=== PATIENT | male | born 1970 | race Two or more races ===

== ENCOUNTER 2017-05-07 10:51 | Emergency (ER) | payer MEDICAID ==
[2017-05-07 11:08] VITALS: BP 128/85
== END 2017-05-07 13:26 | disposition home or self-care (01) ==
LOC: ED 10:51
DX: B34.9 Viral infection, unspecified (principal); Z88.6 Allergy status to analgesic agent
CPT/HCPCS: J1100

== ENCOUNTER 2017-06-01 12:26 | Emergency (ER) | payer MEDICAID ==
[2017-06-01 16:47] VITALS: BP 134/83
== END 2017-06-01 16:47 | disposition home or self-care (01) ==
LOC: ED 12:26
DX: H16.001 Unspecified corneal ulcer, right eye (principal); Z88.6 Allergy status to analgesic agent

== ENCOUNTER 2017-09-23 18:03 | Emergency (ER) | payer MEDICAID ==
[~2017-09-23] VITALS: Ht 167.6 cm; Wt 78.0 kg
[2017-09-23 18:20] VITALS: Ht 167.6 cm; Wt 78.0 kg
[2017-09-23 20:19] VITALS: BP 117/76
== END 2017-09-23 20:20 | disposition home or self-care (01) ==
LOC: ED 18:03
DX: H16.001 Unspecified corneal ulcer, right eye (principal); E11.9 Type 2 diabetes mellitus without complications; Z88.6 Allergy status to analgesic agent
CPT/HCPCS: 82962